=== PATIENT | male | born 1970 | race Caucasian/White ===

== ENCOUNTER 2022-04-09 03:43 | Inpatient (IN) | payer MEDICAID ==
[2022-04-09] VITALS (15 sets, daily range): BP systolic 89–140; BP diastolic 51–89
[~2022-04-09] VITALS: Ht 175.3 cm; Wt 97.5 kg
--- NOTE | 2022-04-09 03:45 | NUR ---
Dr. Tejada examining patient.
--- NOTE | 2022-04-09 03:45 | NUR ---
PT BIBA [facility] ER BED 10
[2022-04-09] MEDS ORDERED: PANTOPRAZOLE 40 MG INJ VIAL IVP ONE (04:00)
[2022-04-09 04:06] LABS: BASOPHILS # (AUTO) 0.1 K/uL (0.00-0.22); BASOPHILS % (AUTO) 0.8 % (0.0-2.0); EOSINOPHILS # (AUTO) 0.1 K/uL (0-0.4); EOSINOPHILS % (AUTO) 1.2 % (0.0-4.0); HEMATOCRIT 36.2 % (36-52); HEMOGLOBIN 12.6 g/dL (12.0-18.0); LYMPHOCYTES # (AUTO) 2.6 K/uL (2.0-11.5); LYMPHOCYTES % (AUTO) 31.3 % (20.5-51.1); MEAN CORPUSCULAR HEMOGLOBIN 32 pg (27-31); MEAN CORPUSCULAR HGB CONC 35 g/dL (33-37); MEAN CORPUSCULAR VOLUME 90.9 fL (80-94); MONOCYTES # (AUTO) 0.5 K/uL (0.8-1.0); MONOCYTES % (AUTO) 6.5 % (1.7-9.3); NEUTROPHILS % (AUTO) 60.2 % (42.2-75.2); PLATELET COUNT (AUTO) 222 K/uL (140-450); RED BLOOD CELL COUNT(AUTO) 3.98 MIL/uL (4.20-6.10); RED CELL DISTRIBUTION WIDTH 12.9 % (11.6-13.7); WHITE BLOOD COUNT (AUTO) 8.2 K/uL (4.8-10.8)
--- NOTE | 2022-04-09 04:14 | NUR ---
PT TAKEN TO CT
--- NOTE | 2022-04-09 04:24 | NUR ---
PT RETURN FROM CT
--- NOTE | 2022-04-09 04:41 | NUR ---
X-Ray at bedside.
[2022-04-09] MEDS ORDERED: NACL 0.9% 1,000 ML IV ONE (04:50)
--- NOTE | 2022-04-09 05:00 | NUR ---
Urine collected and sent to lab
[2022-04-09] MEDS ORDERED: cefTRIAXone 1,000 MG VIAL ONE (05:08)
[2022-04-09 05:12] LABS: CARBON DIOXIDE 27.5 mmol/L (21-32); CHLORIDE 109 mmol/L (98-107); CREATININE 1.3 mg/dL (0.6-1.3); GLUCOSE 204 mg/dL (74-106); POTASSIUM 3.5 mmol/L (3.5-5.1); SODIUM SERUM 145 mmol/L (136-145); UREA NITROGEN, BLOOD 32 mg/dL (7-18)
[2022-04-09 05:16] LABS: APPEARANCE,URINE CLEAR (CLEAR); BILIRUBIN,URINE NEGATIVE (NEGATIVE); BLOOD, URINE NEGATIVE (NEGATIVE); COLOR,URINE YELLOW (YELLOW); LEUKOCYTE ESTERASE ,URINE NEGATIVE (NEGATIVE); NITRITE, URINE NEGATIVE (NEGATIVE); PH,URINE 5.5 (5.0-9.0); UGLUCOSE NEGATIVE (NEGATIVE)
[2022-04-09 05:25] LABS: ANION GAP 11.3 (8-16); GFR ARICAN-AMERICAN 81 mL/min (>90)
[2022-04-09 05:35] LABS: ACETAMINOPHEN < 0.5 ug/ml (10-30); ALBUMIN 2.8 g/dL (3.4-5.0); ASPARTATE AMINOTRANSFERASE 21 U/L (15-37); LIPASE 83 U/L (73-393); TOTAL BILIRUBIN 0.9 mg/dL (0.0-1.0)
[2022-04-09 05:39] LABS: BARBITURATE, URINE NEGATIVE ng/ml (NEG <=200); BENZODIAZEPINE, URINE NEGATIVE ng/mL (NEG <=200); CANNABINOID, URINE NEGATIVE ng/mL (NEG <=50); COCAINE, URINE NEGATIVE ng/mL (NEG <=300); OPIATE, URINE NEGATIVE ng/mL (NEG <=2000); PHENCYCLIDINE SCREEN,URINE NEGATIVE ng/mL (NEG <=25)
--- NOTE | 2022-04-09 05:40 | NUR ---
Pt alert and responsive at this time. Denies any discomfort. No s/s distress.
[2022-04-09 05:42] LABS: SALICYLATE < 2.8 mg/dL (2.8-20.0)
--- NOTE | 2022-04-09 05:44 | NUR ---
PT TAKEN TO CT
--- NOTE | 2022-04-09 05:54 | NUR ---
PT RETURN FROM CT
--- NOTE | 2022-04-09 06:38 | NUR ---
Pt noted hypotensive, notified Dr. Frias and received orders of 1L fluid bolus of NS.
--- NOTE | 2022-04-09 06:38 | NUR ---
Resting but easy to awake at this time. No s/s distress. No c/o discomfort.
[2022-04-09] MEDS ORDERED: NACL 0.9% 1,000 ML IV SCH (06:40)
--- NOTE | 2022-04-09 07:10 | NUR ---
PT RECEIVED, CARE ASSUMED. PT LAYING IN BED CALM, RELAXED. NO ACUTE DISTRESS. NOTED V/S. BLOOD PRESSURE ABNORMAL BUT PT ASYMPTOMATIC. WILL CONTINUE TO MONITOR
--- NOTE | 2022-04-09 07:18 | NUR ---
Report given to Zoran SALVADOR for transfer of care.
[2022-04-09] MEDS ORDERED: LORazepam 2 MG/ML VIAL IVP PRN (07:35)
[2022-04-09] MEDS ORDERED: DOCUSATE SODIUM 100 MG GELCAP PO PRN (07:35)
[2022-04-09] MEDS ORDERED: ZOLPIDEM 10 MG TAB PO PRN (07:35)
[2022-04-09] MEDS ORDERED: ONDANSETRON 4 MG/2 ML VIAL IVP PRN (07:35)
[2022-04-09] MEDS ORDERED: ACETAMINOPHEN 325 MG TAB PO PRN (07:35)
[2022-04-09] MEDS ORDERED: MORPHINE SULFATE 2 MG/ML SYR IVP PRN (07:35)
[2022-04-09] MEDS ORDERED: POTASSIUM CHLORIDE 10 MEQ TABER PO PRN (07:35)
[2022-04-09] MEDS ORDERED: MAG SULF 2000 MG/WATER PREMIX 50 ML IV PRN (07:35)
--- NOTE | 2022-04-09 08:05 | NUR ---
Patient will be admitted to care of [facility]. Admited to ICU3. Will go to room. Belongings list completed. Report to .
--- NOTE | 2022-04-09 08:10 | NUR ---
PT TRANSFERRED FROM ER TO ICU BED 3. REPORT RECEIVED FROM ANURADHA SALVADOR, ALL CARES ASSUMED. PT AWAKE AND ALERT, ANSWERING QUESTIONS APPROPRIATELY. DENIES ANY COMPLAINTS AT THIS TIME.
[2022-04-09] MEDS: PANTOPRAZOLE 40 MG INJ VIAL IVP SCH ×2 (09:00→21:00)
[2022-04-09 09:51] LABS: BASOPHILS % (AUTO) 0.4 % (0.0-2.0); EOSINOPHILS % (AUTO) 0.1 % (0.0-4.0); HEMATOCRIT 32.6 % (36-52); HEMOGLOBIN 10.9 g/dL (12.0-18.0); LYMPHOCYTES % (AUTO) 14.8 % (20.5-51.1); MEAN CORPUSCULAR HEMOGLOBIN 31 pg (27-31); MEAN CORPUSCULAR HGB CONC 34 g/dL (33-37); MEAN CORPUSCULAR VOLUME 92.7 fL (80-94); MONOCYTES # (AUTO) 0.4 K/uL (0.8-1.0); MONOCYTES % (AUTO) 5.5 % (1.7-9.3); NEUTROPHILS # (AUTO) 5.5 K/uL (1.8-7.7); NEUTROPHILS % (AUTO) 79.2 % (42.2-75.2); PLATELET COUNT (AUTO) 189 K/uL (140-450); RED BLOOD CELL COUNT(AUTO) 3.51 MIL/uL (4.20-6.10); RED CELL DISTRIBUTION WIDTH 13.1 % (11.6-13.7); WHITE BLOOD COUNT (AUTO) 6.9 K/uL (4.8-10.8)
--- NOTE | 2022-04-09 10:49 | NUR ---
PATIENT HAS BEEN SCREENED AND CATEGORIZED MODERATE NUTRITION RISK. PATIENT WILL BE SEEN WITHIN 3-5 DAYS OF ADMISSION. REVIEWED BY HUI PURVIS RD
[2022-04-09] MEDS ORDERED: MIDAZOLAM 2 MG/2 ML VIAL ONE (12:12)
[2022-04-09] MEDS ORDERED: fentaNYL citrate 0.05 MG/ML VIAL ONE (12:12)
--- NOTE | 2022-04-09 12:54 | NUR ---
PT TO OR WITH ALEXANDRE SALVADOR, FOR EGD.
[2022-04-09] MEDS ORDERED: MIDAZOLAM 2 MG/2 ML VIAL IVP ONE (13:35)
--- NOTE | 2022-04-09 13:39 | NUR ---
PT BACK FROM OR TO ICU BED 3. REPORT RECEIVED FROM ALEXANDRE SALVADOR, ALL CARES ASSUMED. PT RESTING IN BED WITH EYES CLOSED. VSS. BED IN LOW AND LOCKED POSITION.
--- NOTE | 2022-04-09 19:23 | NUR ---
SBAR REPORT GIVEN TO SHITAL SALVADOR, ALL CARES ENDORSED. Addendum: 04/09/22 at 2144 by Agency 05 [place] RN 1899: rec'd pt from [facility] to assume plan of care. Pt's a/ox4, s/p egd, still have small amount tarry stool. Pt's a/ox4, denies pain, no n/v, no hematemesis, no resp distress with stable vital signs. ST on the monitor low 100's. POC discussed. 1999: SHIFT assessment done. 2129: Pt's family just left. 2139: pt's used urinal, has BSC for no 2, bedside needs given, for oral care, and personal hygiene. SAFETY AND SKIN PROTOCOL ON PROGRESS. CALL LIGHT IN REACH. INSTRUCTED TO CALL IF NEEDS HELP.
--- NOTE | 2022-04-09 21:44 | NUR ---
0: REC'D PT FROM [facility] TO ASSUME PLAN OF CARE. PT'S ON VENT WITH THE SAME SETTINGS, SATS >95%. PT'S AWAKE, EYES WIDE OPEN. ON BILAT SOFT WRIST RESTRAINTS FOR SAFETY. ON PROPOFOL AND FENTANYL DRIP. STABLE VITAL SIGNS. AFEBRILE. ON SPECIAL BED. NPO AFTER MN FOR TRACH AND PEG TOMORROW SCHEDULED. HAS FC AND RECTAL TUBE. C-DIFF ISOLATION. 1999: SHIFT ASSESSMENT DONE. 2099: ORAL CARE RENDERED. UNABLE TO TURN PT, BED NOT TURNING. PT'S HEAVY AND NO HELP, NEEDS AT LEAST 4 PEOPLE 0: ON SEMI FOWLERS POSITION 30 DEGREES, NO RESP DISTRESS. VSS, AFEBRILE ALLDUE MEDS GIVEN ON TIME. SAFETY AND SKIN PROTOCOL ON PROGRESS. CONTINUE MONITOR.
[2022-04-10] VITALS (16 sets, daily range): BP systolic 92–135; BP diastolic 46–74
[2022-04-10 06:03] LABS: ANION GAP 8.3 (8-16); CARBON DIOXIDE 28.5 mmol/L (21-32); POTASSIUM 3.8 mmol/L (3.5-5.1)
[2022-04-10 06:07] LABS: BASOPHILS % (AUTO) 0.6 % (0.0-2.0); EOSINOPHILS % (AUTO) 0.7 % (0.0-4.0); HEMATOCRIT 25.8 % (36-52); HEMOGLOBIN 8.7 g/dL (12.0-18.0); LYMPHOCYTES # (AUTO) 2.2 K/uL (2.0-11.5); LYMPHOCYTES % (AUTO) 33.4 % (20.5-51.1); MEAN CORPUSCULAR HEMOGLOBIN 31 pg (27-31); MEAN CORPUSCULAR HGB CONC 34 g/dL (33-37); MEAN CORPUSCULAR VOLUME 92.2 fL (80-94); MONOCYTES # (AUTO) 0.6 K/uL (0.8-1.0); NEUTROPHILS # (AUTO) 3.8 K/uL (1.8-7.7); NEUTROPHILS % (AUTO) 56.3 % (42.2-75.2); PLATELET COUNT (AUTO) 195 K/uL (140-450); WHITE BLOOD COUNT (AUTO) 6.7 K/uL (4.8-10.8)
--- NOTE | 2022-04-10 06:35 | NUR ---
NO SIGNIFICANT CHANGES FROM PREVIOUS SHIFT ASSESSMENT. VITAL SIGNS STABLE. HAD MULTIPLE BM DARK RED STOOL COLOR. A/OX4,NEVER C/O PAIN, NO N/V, USED URINAL TO VOIDS AND BEDSIDE COMMODE. SELF CARE/INDEPENDENT. NO FALLS AND NO INJURY DURING SHIFT. NO FALLS AND NO INJURY DURING SHIFT. WILL ENDORSE TO AM SHIFT TO ASSUME PLAN OF CARE.
--- NOTE | 2022-04-10 07:20 | NUR ---
Received pt. in stable condition. Afebrile. VS is in stable condition. Pt. is AAO x3, verbalized understanding. SR, B/L lung sound clear upon auscultation. PIV on both arms intact with no s/s of infiltration. Pt. is able to ambulate. Continent to B&B. No acute distress noted.
[2022-04-10] MEDS: PANTOPRAZOLE 40 MG INJ VIAL IVP SCH ×2 (08:24→20:10)
[2022-04-10] MEDS ORDERED: SODIUM FERRIC GLUCONATE 125 MG in NACL 0.9% 100 ML IV SCH (09:00)
[2022-04-10] MEDS ORDERED: NACL 0.9% 1,000 ML IV ONE (11:30)
--- NOTE | 2022-04-10 14:00 | NUR ---
DISCHARGE PLANNING PATIENT IS A 50 YEAR OLD MALE ADMITTED TO [facility]ER ON 04/09/2022 DUE TO UPPER GASTROINTESTINAL. SW MEET WITH PATIENT AND HIS SISTER AT BEDSIDE TO DISCUSS AND GATHER PATIENT'S COLLATERAL INFORMATION. PATIENT WAS AWAKE AND ALERT ABLE TO PROVIDE HIS OWN INFORMATION. PER PATIENT HE LIVES AT HOME WITH A ROOMMATE. PER PATIENT HE HAS GOOD FAMILY SUPPORT FROM HIS SISTERS. PER PATIENT HE DO NOT HAVE ADVANCE DIRECTIVES AND DECLINED ALL FORMS PROVIDED BY DEVAUGHN. PATIENT STATED THAT HIS SISTERS [employer] AND [employer] ARE HIS EMERGENCY CONTACT AND HIS MEDICAL DECISION MAKER. PATIENT STATED THAT HE IS INDEPENDENT AND THAT HE HAS NO DME AT HOME. PATIENT REPORTED NOT HAVING A PCP OR DR. FOR ABOUT A YEAR DUE TO LEAVING IN [place] BUT RECENTLY MOVING TO [place]. SW PROVIDED PATIENT WITH RESOURCES TO LOW COST CLINICS IN THE AREA TO FOLLOW UP APPOINTMENTS AFTER HIS DISCHARGE WITHIN 5-7 DAYS. PER PATIENT HE HAS NO ISSUES GETTING OR TAKING HER MEDICATIONS AND STATED THAT HE WILL GET THEM FROM THE [facility] IN [place] AND [facility] IN [facility]. 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 SW THANKED PATIENT FOR THE INFORMATION AND ENDED THE MEETING. DEVAUGHN/CM WILL FOLLOWUP NEED IT.
--- NOTE | 2022-04-10 17:20 | NUR ---
RECEIVED PT. FROM ICU. ALERT AND ORIENTED X4, NOT IN ANY FORM OF DISTRESS, ASSESSMENT DONE, PATIENT DENIES ANY PAIN OR DISCOMFORT, PLAN OF CARE DISCUSSED, WILL CONTINUE TO MONITOR.
--- NOTE | 2022-04-10 19:05 | NUR ---
RECEIVED REPORT FROM MORNING SHIFT NURSE. PT IS AOX4, AMBULATORY WITH RELATIVE ON BEDSIDE, ABLE TO FOLLOW COMMAND AND ABLE TO VERBALIZE PAIN. PT IS ON ROOM AIR WITH REGULAR DIET. PT HAS IV ON LEFT AC GAUGE 20 RUNNING SALINE LOCK. PT SKIN IS INTACT. PT DENIES PAIN AND NO S/S OF RESPIRATORY DISTRESS NOTED. ALL SAFETY MEASURES IMPLEMENTED. BED IN LOW POSITION, BED WHEELS ON LOCK AND CALL LIGHT WITHIN REACH.
--- NOTE | 2022-04-10 20:10 | NUR ---
SCHEDULED AND PRESCRIBED MEDICATION WAS GIVEN TO PT PER MD ORDER. ALL SAFETY MEASURES IMPLEMENTED. BED IN LOW POSITION, BED WHEELS ON LOCK AND CALL LIGHT WITHIN REACH.
--- NOTE | 2022-04-10 22:00 | NUR ---
PT WAS GIVEN WATER PER PT REQUESTED. NO S/S OF RESPIRATORY DISTRESS NOTED AND PT DENIES PAIN. ALL SAFETY MEASURES IMPLEMENTED. BED IN LOW POSITION, BED WHEELS ON LOCK AND CALL LIGHT WITHIN REACH.
[2022-04-11] VITALS: BP 113/73
--- NOTE | 2022-04-11 | NUR ---
PT IS SLEEPING. CHEST RISE AND FALL SYMMETRICALLY NOTED. RESPIRATION IS EVEN AND UNLABORED. ALL SAFETY MEASURES IMPLEMENTED. BED IN LOW POSITION, BED WHEELS ON LOCK AND CALL LIGHT WITHIN REACH.
--- NOTE | 2022-04-11 02:00 | NUR ---
PT WAS GIVEN WARM BLANKET PER PT REQUEST. NO S/S OF RESPIRATORY DISTRESS NOTED. PT DENIES PAIN. ALL SAFETY MEASURES IMPLEMENTED. BED IN LOW POSITION, BED WHEELS ON LOCK AND CALL LIGHT WITHIN REACH.
[2022-04-11 04:00] VITALS: BP 115/67
--- NOTE | 2022-04-11 04:00 | NUR ---
CHECKED PT, STILL SLEEPING. CHEST RISE AND FALL SYMMETRICALLY NOTED. RESPIRATION IS EVEN AND UNLABORED. ALL SAFETY MEASURES IMPLEMENTED. BED IN LOW POSITION, BED WHEELS ON LOCK AND CALL LIGHT WITHIN REACH.
[2022-04-11 07:42] LABS: ANION GAP 10.1 (8-16); CARBON DIOXIDE 27.2 mmol/L (21-32); CREATININE 0.9 mg/dL (0.6-1.3); POTASSIUM 4.3 mmol/L (3.5-5.1)
[2022-04-11 07:51] LABS: BASOPHILS % (AUTO) 0.3 % (0.0-2.0); EOSINOPHILS # (AUTO) 0.1 K/uL (0-0.4); EOSINOPHILS % (AUTO) 1.4 % (0.0-4.0); HEMATOCRIT 20.8 % (36-52); LYMPHOCYTES # (AUTO) 2.4 K/uL (2.0-11.5); LYMPHOCYTES % (AUTO) 37.8 % (20.5-51.1); MEAN CORPUSCULAR HEMOGLOBIN 32 pg (27-31); MEAN CORPUSCULAR HGB CONC 34 g/dL (33-37); MEAN CORPUSCULAR VOLUME 93.1 fL (80-94); MONOCYTES # (AUTO) 0.4 K/uL (0.8-1.0); MONOCYTES % (AUTO) 6.3 % (1.7-9.3); NEUTROPHILS # (AUTO) 3.5 K/uL (1.8-7.7); NEUTROPHILS % (AUTO) 54.2 % (42.2-75.2); PLATELET COUNT (AUTO) 193 K/uL (140-450); RED BLOOD CELL COUNT(AUTO) 2.23 MIL/uL (4.20-6.10); WHITE BLOOD COUNT (AUTO) 6.5 K/uL (4.8-10.8)
[2022-04-11 08:00] VITALS: BP 111/67
[2022-04-11] MEDS: PANTOPRAZOLE 40 MG INJ VIAL IVP SCH (08:37)
[2022-04-11] MEDS ORDERED: PANT40EC PO (10:35)
[2022-04-11] MEDS ORDERED: FERR325E14 PO (10:35)
[2022-04-11] MEDS ORDERED: CLAR500T14 PO (10:36)
[2022-04-11] MEDS ORDERED: AMOX500C25 PO (10:37)
[2022-04-11 12:00] VITALS: BP 112/67
--- NOTE | 2022-04-11 13:18 | NUR ---
blood transfusion started. patient denies any pain or discomfort. vital signs stable.
[2022-04-11 16:00] VITALS: BP 114/67
[2022-04-11 16:06] VITALS: BP 115/67
--- NOTE | 2022-04-11 17:24 | NUR ---
patient discharged home after blood transfusion. no reaction to blood transfusion. patient stable upon discharge
== END 2022-04-11 17:10 | disposition home or self-care (01) | DRG 241 ==
LOC: MED 03:43 → MTU 05:48 → MIC 07:47 → MTU 04-10 16:50
PROVIDERS: ADMIT Family Medicine; ATTEND Family Medicine
PROC: 0DB68ZX Excision of Stomach, Via Natural or Artificial Opening Endoscopic, Diagnostic (ICD-10-PCS; 2022-04-09)
PROC: 30233N1 Transfusion of Nonautologous Red Blood Cells into Peripheral Vein, Percutaneous Approach (ICD-10-PCS; 2022-04-09)
PROC: 0DB78ZX Excision of Stomach, Pylorus, Via Natural or Artificial Opening Endoscopic, Diagnostic (ICD-10-PCS; principal; 2022-04-09 12:00)
PROC: 0W3P8ZZ Control Bleeding in Gastrointestinal Tract, Via Natural or Artificial Opening Endoscopic (ICD-10-PCS; 2022-04-09 12:00)
DX: K29.61 Other gastritis with bleeding (principal); R57.1 Hypovolemic shock; E87.0 Hyperosmolality and hypernatremia; D62 Acute posthemorrhagic anemia; R65.10 Systemic inflammatory response syndrome (SIRS) of non-infectious origin without acute organ dysfunction; K25.9 Gastric ulcer, unspecified as acute or chronic, without hemorrhage or perforation; K26.4 Chronic or unspecified duodenal ulcer with hemorrhage; B96.81 Helicobacter pylori [H. pylori] as the cause of diseases classified elsewhere; R55 Syncope and collapse; Z20.822 Contact with and (suspected) exposure to COVID-19; F17.200 Nicotine dependence, unspecified, uncomplicated
CPT/HCPCS: 36415; 70450; 71045; 80048; 80053; 80305; 81003; 83690; 83735; 83880; 84484; 85025; 85379; 86677; 86886; 86900; 86901; 86920; 87081; 93005; 96365; 96375; 99291; C9113; G0480; G0482; J0696; J2250; J2916; J3010; P9016; Q0092; Q9967

== ENCOUNTER 2022-04-16 13:13 | Emergency (ER) | payer MEDICAID ==
[~2022-04-16] VITALS: Ht 172.7 cm; Wt 86.2 kg
[~2022-04-16 13:13] MED LIST: AMOX500C25 PO; CLAR500T14 PO; FERR325E14 PO; PANT40EC PO
--- NOTE | 2022-04-16 13:21 | NUR ---
PT AMBULATED TO LOBBY
[2022-04-16 13:22] VITALS: BP 131/58
--- NOTE | 2022-04-16 13:30 | NUR ---
52/M WALKED IN C/O DIZZINESS ONSET THIS AM. PT DENIES FALL OR TRAUMA TO HEAD. REPORTS MILD NAUSEA BUT DENIES VOMITING. PT STATES TAKING FERROUS SULFATE THIS AM. PT WAS SEEN AT A HOSPITAL ON 04/09 AND WAS DX GASTRITIS, DUODENAL ULCER, AND ANEMIA. PT WAS PX ATBX AND FERROUS SULFATE BUT STATES ONLY STARTING FERROUS SULFATE. AAO4, AMBULATORY, VITALS STABLE. PMH: DENIES
[2022-04-16 14:17] LABS: BASOPHILS % (AUTO) 0.5 % (0.0-2.0); EOSINOPHILS # (AUTO) 0.2 K/uL (0-0.4); EOSINOPHILS % (AUTO) 2.8 % (0.0-4.0); HEMATOCRIT 26.6 % (36-52); LYMPHOCYTES # (AUTO) 1.8 K/uL (2.0-11.5); LYMPHOCYTES % (AUTO) 30.2 % (20.5-51.1); MEAN CORPUSCULAR HEMOGLOBIN 32 pg (27-31); MEAN CORPUSCULAR HGB CONC 34 g/dL (33-37); MEAN CORPUSCULAR VOLUME 94.1 fL (80-94); MONOCYTES # (AUTO) 0.3 K/uL (0.8-1.0); MONOCYTES % (AUTO) 5.3 % (1.7-9.3); NEUTROPHILS # (AUTO) 3.7 K/uL (1.8-7.7); NEUTROPHILS % (AUTO) 61.2 % (42.2-75.2); PLATELET COUNT (AUTO) 297 K/uL (140-450); RED BLOOD CELL COUNT(AUTO) 2.82 MIL/uL (4.20-6.10); RED CELL DISTRIBUTION WIDTH 14.4 % (11.6-13.7)
[2022-04-16 14:32] LABS: ALBUMIN 3.8 g/dL (3.4-5.0); ANION GAP 11.5 (8-16); CARBON DIOXIDE 27.5 mmol/L (21-32); CREATININE 0.8 mg/dL (0.6-1.3)
[2022-04-16 15:52] VITALS: BP 139/74
--- NOTE | 2022-04-16 15:52 | NUR ---
Patient discharged with v/s stable. Written and verbal after care instructions FOR PEPTIC ULCER AND EATING PLAN given and explained. Patient verbalized understanding. Ambulatory with steady gait. All questions addressed prior to discharge. Advised to follow up with PMD.
== END 2022-04-16 15:52 | disposition home or self-care (01) ==
LOC: MED 13:13
DX: R53.1 Weakness (principal); K27.9 Peptic ulcer, site unspecified, unspecified as acute or chronic, without hemorrhage or perforation
CPT/HCPCS: 36415; 80053; 83690; 85025; 99283